=== PATIENT | female | born 1950 | race Caucasian/White ===

== ENCOUNTER → 2016-11-03 | Day surgery (SDC) | payer MEDICARE, BC ==
[~2016-11-03] MED LIST: DESV50TA PO; IV RINGERS,LACTATED 1000ML 1,000 ML IV SCH; PROPOFOL 20 ML IV ONE
[2016-11-03 08:05] VITALS: BP 110/69
--- NOTE | 2016-11-04 01:43 | HP ---
ADMIT DATE: 11/03/2016 REFERRING PHYSICIAN: Dr. Rico Andrade. HISTORY OF PRESENT ILLNESS: This is a 66-year-old female with past medical history significant for colonic polyps, diverticulosis, depression, migraines, seen for surveillance exam, last exam was over 3 years ago. Polyps have been regular without diarrhea or constipation. No change in weight or appetite. She has otherwise had no additional complaints. PAST MEDICAL HISTORY: Diverticulosis, migraines, hemorrhoids, depression. ALLERGIES: None. MEDICATIONS: At the present time include Pristiq 50 mg daily. FAMILY HISTORY: Significant for heart disease in multiple family members with colon polyps in multiple family members. She is a social drinker and a smoker. PAST SURGICAL HISTORY: Status post tubal ligation, hysterectomy, breast augmentation, abdominoplasty, and appendectomy. REVIEW OF SYSTEMS: Per records. PHYSICAL EXAMINATION: GENERAL: Reveals a well-nourished, well-developed female. VITAL SIGNS: Temperature is 99, pulse 84, respirations 16. HEENT: Normocephalic and atraumatic head. Pupils and extraocular muscles not tested. Sclerae anicteric. NECK: Supple. LUNGS: Clear. CARDIOVASCULAR: Reveals an S1, S2 without S3, S4 or appreciable murmur. ABDOMEN: Soft abdomen, normal bowel sounds, without appreciable hepatosplenomegaly. EXTREMITIES: Reveals no cyanosis, clubbing or edema. IMPRESSION: History of colonic polyps. Surveillance exam was recommended at this time. Risks and benefits of procedure including risk of having perforation during the operation have been discussed. The patient is willing to proceed at this time. I would like to thank Dr. Andrade for allowing us to consult and participate in patient's care. DANIAL SALGADO MD DR: CHELE/jolie JOB#: [id number] / [id number]
== END | disposition home or self-care (01) ==
LOC: ENDOS 05:55
PROVIDERS: ATTEND Internal Medicine Gastroenterology
DX: K62.1 Rectal polyp (principal); K64.1 Second degree hemorrhoids; K57.30 Diverticulosis of large intestine without perforation or abscess without bleeding; F32.9 Major depressive disorder, single episode, unspecified; Z86.69 Personal history of other diseases of the nervous system and sense organs; Z98.51 Tubal ligation status; Z90.710 Acquired absence of both cervix and uterus; Z87.19 Personal history of other diseases of the digestive system
CPT/HCPCS: 45380; J2704